=== PATIENT | male | born 1975 | race Caucasian/White ===

== ENCOUNTER 2016-12-31 07:09 | Day surgery (SDC) | payer MEDICAID, OTHER ==
[~2016-12-31] VITALS: Ht 180.3 cm; Wt 86.3 kg
[2016-12-31] VITALS (11 sets, daily range): BP systolic 119–140; BP diastolic 69–85; PULSE 58–76; RESP 13–20; Ht 180.3 cm; Wt 86.3 kg
[2016-12-31] MEDS ORDERED: ATEN50TA PO (07:36)
--- NOTE | 2016-12-31 09:25 | HPN ---
Date/Time of Note Date/Time of Note DATE: 12/31/16 TIME: 09:24 Interval H&P Admission Note Pt. seen H&P reviewed: No system changes LOIR MITCHELL DPM Dec 31, 2016 09:25
[2016-12-31] MEDS ORDERED: POLYMYXIN/BACITRACIN 1L IRRIG ONE (09:27)
[2016-12-31] MEDS ORDERED: PROPOFOL 20 ML ONE (09:47)
[2016-12-31] MEDS ORDERED: MIDAZOLAM 1 MG/ML 2 ML INJ ONE ×2 (09:48)
[2016-12-31] MEDS ORDERED: FENTAnyl 50 MCG/ML VIAL ONE (09:48)
[2016-12-31] MEDS ORDERED: CEFAZOLIN 1 GM INJ ONE (09:54)
[2016-12-31] MEDS: BUPIVACAINE 0.5% (SDV) 30 ML INJ ONE ×2 (09:59→10:47)
[2016-12-31] MEDS: LIDOCAINE 2% (MDV) 20 ML INJ ONE ×2 (09:59→10:40)
[2016-12-31] MEDS ORDERED: HYDROmorphONE (0.2 MG/ML) 10ML SYG IV PRN ×3 (10:30)
[2016-12-31] MEDS ORDERED: ONDANSETRON 4 MG INJ IV PRN (10:30)
[2016-12-31] MEDS ORDERED: DIPHENHYDRAMINE 50 MG INJ IV PRN (10:30)
[2016-12-31] MEDS ORDERED: MEPERIDINE 25 MG INJ IV PRN (10:30)
--- NOTE | 2016-12-31 11:14 | OPR ---
Date/Time of Note Date/Time of Note DATE: 12/31/16 TIME: 11:05 Operative Report Procedure Date: Dec 31, 2016 Preoperative Diagnosis Large soft tissue mass right foot Plantar fibroma right foot Right foot pain Postoperative Diagnosis Large soft tissue mass right foot Plantar fibroma right foot Right foot pain Operation Performed Surgical excision of right foot painful mass. Surgeon: LORI MITCHELL DPM Anesthesia: MAC Estimated Blood Loss: minimal Specimens Soft tissue mass right foot. Complications: None Pt Condition Post Procedure: stable Disposition: PACU Indications This is a pleasant 41 year old male patient with a painful mass under his right foot in the arch area. This lesion apparently increased in size over time and has become too painful according to the patient, when walking and standing. Patient reports he has failed non surgical management such as shoe gear change, activity modification, pain medication, NSAIDs, etc. Seeks surgical management at this time. Recommendation is surgical excision of right foot painful soft tissue mass. Risks and complications of this type of surgery was discussed with patient in great detail. Risks and complications discussed include, but are not limited to, post operative infection, post operative pain, recurrence of lesion, worsening of condition, failure of surgery to correct the problem, need to additional surgical procedure, deep venous thrombosis, limb loss and loss of life. No guarantee or warrantee was given or implied as to the outcome of the procedure, either in verbal or written form. Operative\Procedure Findings Large soft tissue mass on plantar medial mid arch of the right foot measuring 4 x 2 x 1 cm. Procedure Description The patient was seen in the preoperative area. Proposed surgical procedure was discussed with patient. An opportunity was given to patient to ask questions and all questions were answered. Patient was then taken to the operating room and was placed on the operating table in the supine position. Patient was placed under IV sedation. I injected the right ankle with 20 cc of a one-to- one mixture of 2% lidocaine plain and 0.5% Marcaine plain as a total ankle block. The right lower extremity was then scrubbed, prepped and draped in the usual aseptic manner. A timeout was called by the circulating nurse. Attention was directed to the right foot. [place] incision was made at the distal aspect of the right foot encompassing the forefoot. This incision was made using a sharp #15 blade. Bleeders were cauterized as necessary. Dissection was deepened to the metatarsophalangeal joints and the forefoot was disarticulated at the metatarsophalangeal joints. Bleeders were cauterized as necessary. Power saw was used to cut the metatarsal heads 1 through 5 in order to facilitate primary closure of the wound. Tendon and capsule structures were sharply debrided using a #15 blade. Bleeders were cauterized as necessary. The wound was flushed with copious amounts of sterile normal saline. The subcutaneous layer was closed using 3-0 Vicryl and the skin was closed using 2- 0 nylon simple suture technique. Attention was directed next to the plantar heel. A 4 x 5 cm open wound was found with pink granulation tissue covering the surface of the calcaneus plantarly. An incision was made in the midline of the plantar heel using a #10 blade. A periosteal elevator was used to separate the granulation tissue from plantar aspect of the calcaneus. The calcaneus was cut a 30 angle from the plantar aspect towards the posterior aspect using a power saw. The remainder of the cut was made using osteotomes and a mallet. Partial calcanectomy was done. All rough edges were smoothed using a power rasp. The wound was flushed with copious amounts of sterile normal saline. Next, using 0 Prolene, I reduced the volume of the wound and closed the wound partially. Once this was completed, postoperative injection of 0.5% Marcaine plain was given. Sterile dressing was applied to the right foot. The patient tolerated procedure and anesthesia well. She was transferred to recovery room with vital signs stable and vascular status intact to the remaining right foot. Patient will be discharged home after postoperative monitoring. Postoperative orders were written. Prescription was submitted electronically to her pharmacy. Patient is to remain strictly nonweightbearing on the right foot using her wheelchair or walker. Patient will be seen next week in the office for follow-up. LORI MTICHELL DPM Dec 31, 2016 11:14
[2016-12-31] MEDS ORDERED: BUPIVACAINE 0.5% (SDV) 30 ML INJ ONE (11:20)
[2016-12-31] MEDS ORDERED: LIDOCAINE 2% (MDV) 20 ML INJ ONE (11:20)
[2016-12-31] MEDS ORDERED: TOBRAMYCIN 1.2 GM POWDER ONE (11:20)
[2016-12-31] MEDS ORDERED: VANCOMYCIN 1 GM INJ ONE (11:20)
== END 2016-12-31 12:35 | disposition home or self-care (01) ==
LOC: SDS 07:09
PROVIDERS: ATTEND Podiatrist Foot & Ankle Surgery
DX: M72.2 Plantar fascial fibromatosis (principal)
CPT/HCPCS: 28008; 88304; J0690; J2250; J3010; J3370; Z7512; Z7610